=== PATIENT | female | born 2000 | race Caucasian/White ===

== ENCOUNTER 2021-09-18 15:51 | Outpatient (CLI) | payer OTHER ==
[~2021-09-18] VITALS: Ht 160 cm; Wt 56.0 kg
[2021-09-21] MEDS ORDERED: FERR325T3 PO (04:47)
[2021-09-21] MEDS ORDERED: PRENTAB9 PO (04:47)
[2021-09-21] MEDS ORDERED: ZOLO100T PO (04:47)
[2021-09-21] MEDS ORDERED: VALA1TAB5 PO (04:47)
[2021-09-21] MEDS ORDERED: PRIL20TA2 PO (04:47)
[2021-09-22] MEDS ORDERED: IBUP80TA PO (07:47)
[2021-09-22] MEDS ORDERED: ACET-683 PO (07:47)
== END 2021-09-18 16:50 | disposition home or self-care (01) ==
LOC: M LDO 15:51
PROVIDERS: ATTEND Obstetrics & Gynecology
DX: O26.893 Other specified pregnancy related conditions, third trimester (principal); R25.2 Cramp and spasm; Z3A.36 36 weeks gestation of pregnancy; N89.8 Other specified noninflammatory disorders of vagina
CPT/HCPCS: 59025; G0463

== ENCOUNTER 2021-10-11 18:46 | Emergency (ER) | payer OTHER ==
[~2021-10-11] VITALS: Ht 160 cm; Wt 47.8 kg
[2021-10-11 18:46] VITALS: BP 117/62
[~2021-10-11 18:46] MED LIST: ACET-683 PO; FERR325T3 PO; IBUP80TA PO; PRENTAB9 PO; PRIL20TA2 PO; VALA1TAB5 PO; ZOLO100T PO
== END 2021-10-11 19:54 | disposition left against medical advice (07) ==
LOC: M ED 18:46
DX: Z53.29 Procedure and treatment not carried out because of patient's decision for other reasons (principal)

== ENCOUNTER 2022-01-22 16:14 | Emergency (ER) | payer SELFPAY ==
[~2022-01-22] VITALS: Ht 160 cm; Wt 46.5 kg
[~2022-01-22 16:14] MED LIST changes: +ADDE10CA3 PO; +LITH300C PO; +VITA100093 PO
[2022-01-22 16:15] VITALS: BP 107/51
== END 2022-01-22 17:14 | disposition left against medical advice (07) ==
LOC: M ED 16:14
DX: Z53.29 Procedure and treatment not carried out because of patient's decision for other reasons (principal)

== ENCOUNTER 2022-05-19 11:41 | Emergency (ER) | payer OTHER, SELFPAY ==
[~2022-05-19] VITALS: Ht 160 cm; Wt 45.9 kg
[2022-05-19 13:02] LABS: BASO % 0.4 % (0.0-1.0); EOS # 0.1 10^3/uL (0.0-0.5); HEMATOCRIT 41.1 % (36.0-47.0); HEMOGLOBIN 13.5 g/dl (12.0-15.5); LYMPH # 2.2 10^3/uL (1.5-5.0); LYMPH % 33.3 % (24.0-44.0); MEAN CORPUSCULAR HEMOGLOBIN 29.6 pg (27.0-33.0); MEAN CORPUSCULAR HGB CONC 32.8 g/dl (32.0-36.5); MEAN CORPUSCULAR VOLUME 90.1 fl (80.0-96.0); MONO # 0.5 10^3/uL (0.0-0.8); MONO % 6.8 % (2.0-8.0); NEUTROPHILS # 3.9 10^3/uL (1.5-8.5); NEUTROPHILS % 58.4 % (36.0-66.0); PLATELET COUNT, AUTOMATED 257 10^3/uL (150-450); RED BLOOD COUNT 4.56 10^6/uL (4.00-5.40); WHITE BLOOD COUNT 6.7 10^3/uL (4.0-10.0)
[2022-05-19 13:18] LABS: LIPASE 42 U/L (12-53)
[2022-05-19 13:21] LABS: ALBUMIN 4.5 G/DL (3.2-5.2); ALKALINE PHOSPHATASE 49 U/L (46-116); ALT/SGPT 15 U/L (7.0-40); AST/SGOT 16 U/L (<34); BILIRUBIN,DIRECT 0.2 MG/DL (<0.4); BILIRUBIN,TOTAL 0.6 MG/DL (0.3-1.2); BLOOD UREA NITROGEN 18 MG/DL (9-23); CALCIUM LEVEL 9.9 MG/DL (8.5-10.1); CARBON DIOXIDE LEVEL 26 MMOL/L (20-31); CHLORIDE LEVEL 106 MMOL/L (98-107); CREATININE FOR GFR 0.83 MG/DL (0.55-1.30); GLOMERULAR FILTRATION RATE > 60.0 (>60); GLUCOSE, FASTING 81 MG/DL (60-100); POTASSIUM SERUM 4.2 MMOL/L (3.5-5.1); SODIUM LEVEL 139 MMOL/L (136-145); TOTAL PROTEIN 7.7 G/DL (5.7-8.2)
[2022-05-19 13:33] LABS: HCG, SERUM QUALITATIVE NEGATIVE (NEGATIVE)
[2022-05-19 14:48] VITALS: BP 124/70
== END 2022-05-19 14:49 | disposition home or self-care (01) ==
LOC: M ED 11:41
DX: R10.13 Epigastric pain (principal); Z87.448 Personal history of other diseases of urinary system; Z79.899 Other long term (current) drug therapy; Z88.8 Allergy status to other drugs, medicaments and biological substances